=== PATIENT | male | born 1965 | race Caucasian/White ===

== ENCOUNTER 2025-03-09 06:27 | Day surgery (SDC) | payer BC, SELFPAY ==
[2025-03-09 07:20] LABS: Glucose - Point of Care 204 mg/dl (70-99)
== END 2025-03-09 09:42 | disposition home or self-care (01) ==
LOC: GI 06:27
PROVIDERS: ATTENDING PHYSICIAN Student in an Organized Health Care Education/Training Program
DX: Z12.11 Encounter for screening for malignant neoplasm of colon (principal); K63.89 Other specified diseases of intestine; K52.839 Microscopic colitis, unspecified; D12.3 Benign neoplasm of transverse colon; D12.5 Benign neoplasm of sigmoid colon; D12.8 Benign neoplasm of rectum; K52.832 Lymphocytic colitis; Z86.0100 Personal history of colon polyps, unspecified
CPT/HCPCS: 45385; 45381; 45380; 82962; 88305